=== PATIENT | male | born 1950 | race Caucasian/White ===

== ENCOUNTER 2023-07-21 12:54 | Emergency (ER) | payer OTHER ==
[2023-07-21 13:11] VITALS: BP 150/96; PULSE 70; RESP 16; TEMP 97.8; BMI 29.2
== END 2023-07-21 13:55 | disposition home or self-care (01) ==
LOC: FER 12:54
DX: R07.81 Pleurodynia (principal); S20.212A Contusion of left front wall of thorax, initial encounter; W01.0XXA Fall on same level from slipping, tripping and stumbling without subsequent striking against object, initial encounter
CPT/HCPCS: 71101-TC-LT-FY; 99283-25